=== PATIENT | female | born 1995 | race Caucasian/White ===

== ENCOUNTER 2018-03-05 07:47 | Emergency (ER) | payer BC ==
[2018-03-05] MEDS ORDERED: Ketorolac 30 MG/ML SDV IVPUSH ONE (07:58)
[2018-03-05] MEDS ORDERED: Sodium Chloride 0.9% 2.5 ML Syringe FLUSH PRN (07:58)
[2018-03-05] MEDS ORDERED: Sodium Chloride 0.9% 10 ML Syringe FLUSH PRN (07:58)
[2018-03-05] MEDS ORDERED: Albuterol/Ipratropium 3.0-0.5 MG/3 ML Neb Soln NEB ONE (07:59)
--- NOTE | 2018-03-05 07:59 | EDM.PDOC ---
ED HPI GENERAL MEDICAL PROBLEM - General Chief Complaint: Chest Pain Stated Complaint: CHEST PAINS Time Seen by Provider: 03/05/18 07:47 - History of Present Illness INITIAL COMMENTS - FREE TEXT/NARRATIVE: HISTORY AND PHYSICAL: History of present illness: The patient is a healthy 22-year-old female who presents with complaints of pressure and pain to the mid sternum that started after she woke up this morning. The patient says that she had similar pain when she had bronchitis back in November but it seems to be a little stronger today. She did not use her inhaler or take any medications for the discomfort prior to coming here. The patient tells me she had a normal day yesterday with normal by mouth intake and no strenuous activities and no upper respiratory symptoms or discomfort. When the pain started she did not get sweaty and nauseated or short of breath. Patient has no leg pain or swelling and she does take oral control pills for the last 4 years but does not smoke cigarettes and has no other social history. She has no significant family history for cardiac disease. The patient says that the discomfort does not radiate right or left and is located in the mid area and she doesn't have any food intolerances or GI problems. She currently does not feel nauseated and is not having excessive burping. She says that the discomfort does trigger her to cough but she has not been coughing recently. There is no phlegm production and no fevers or chills sore throat or runny nose. The patient rates her discomfort as a 6-7/10 Review of systems: As per history of present illness and below otherwise all systems reviewed and negative. Past medical history: As per history of present illness and as reviewed below otherwise noncontributory. Surgical history: As per history of present illness and as reviewed below otherwise noncontributory. Social history: No reported history of drug or alcohol abuse. Family history: As per history of present illness and as reviewed below otherwise noncontributory. Physical exam: General: Well-developed well-nourished female whose vital signs were noted by me and who is speaking clearly and easily in the ED without breathlessness and moves easily without discomfort. HEENT: Atraumatic, normocephalic, negative for conjunctival pallor or scleral icterus, mucous membranes moist, throat clear, neck supple, nontender, trachea midline. Lungs: Clear to auscultation, breath sounds equal bilaterally, chest wall with reproducible discomfort on palpation of the costochondral areas bilaterally without defects deformities or crepitus. There is no wheezing or stridor no work of breathing Heart: S1S2, regular, negative for clicks, rubs, or JVD. Abdomen: Soft, nondistended, nontender. Negative for masses or hepatosplenomegaly. NABS Pelvis: Deferred Genitourinary: Deferred. Rectal: Deferred. Extremities: Atraumatic, negative for cords or calf pain. Neurovascular unremarkable. No pedal edema or leg asymmetry Neuro: Awake, alert, oriented. Cranial nerves II through XII unremarkable. Cerebellum unremarkable. Motor and sensory unremarkable throughout. Exam nonfocal. Skin: Turgor is normal not diaphoresis and no overt evidence of rashes or lesions Diagnostics: EKG chest x-ray CBC CMP troponin d-dimer H. pylori Therapeutics: Toradol DuoNeb Please note that when asked about her allergy to ibuprofen she says it is only the trade name Motrin and she can take generic ibuprofens why we'll give her the Toradol. During and after the DuoNeb the patient did have facial flushing and shakiness and felt somewhat anxious with her increased heart rate but this started to resolve very quickly after the treatment ended. I evaluated the patient and this is not any allergic reaction but more a side effect of the DuoNeb. I discussed all testing results with patient and mother at bedside. She states she does feel much improved and she says that she has a scheduled appointment with Dr. Edgar Teran on Thursday. I've advised her on reasons to return to the ED and care plan for home and to keep that follow-up appointment for reevaluation. She is comfortable with this care plan. Impression: Chest wall pain improved, etiology unclear rule out costochondritis Definitive disposition and diagnosis as appropriate pending reevaluation and review of above. 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 ED EXAM, GENERAL - Physical Exam Exam: See Below (See dictation) Course - Vital Signs Last Recorded V/S: Last Vital Signs Temp 36.4 C 03/05/18 07:48 Pulse 77 03/05/18 09:46 Resp 16 03/05/18 09:46 BP 118/63 03/05/18 09:46 Pulse Ox 98 03/05/18 09:46 - Orders/Labs/Meds Orders: Active Orders 24 hr Category Date Time Status Cardiac Monitoring [RC] . DIRECTED Care 03/05/18 07:58 Active EKG 12 Lead [EKG Documentation Completion] [RC] STAT Care 03/05/18 07:53 Active EKG Documentation Completion [RC] STAT Care 03/05/18 07:58 Inactive Oxygen Therapy, ED [RC] ASDIRECTED Care 03/05/18 07:57 Active Pulse Oximetry [RC] ASDIRECTED Care 03/05/18 07:58 Active RT Aerosol Therapy [RC] ASDIRECTED Care 03/05/18 07:59 Active Sodium Chloride 0.9% [Saline Flush] Med 03/05/18 07:58 Active 10 ml FLUSH ASDIRECTED PRN Sodium Chloride 0.9% [Saline Flush] Med 03/05/18 07:58 Active 2.5 ml FLUSH ASDIRECTED PRN Saline Lock Insert [OM.PC] Stat Oth 03/05/18 07:57 Ordered Medication Orders Sodium Chloride (Saline Flush) 10 ml FLUSH ASDIRECTED PRN PRN Reason: Keep Vein Open Sodium Chloride (Saline Flush) 2.5 ml FLUSH ASDIRECTED PRN PRN Reason: Keep Vein Open Labs: Laboratory Tests 03/05/18 03/05/18 03/05/18 Range/Units 08:10 08:10 08:10 WBC 8.08 (4.0-11.0) K/uL RBC 4.89 (4.30-5.90) M/uL Hgb 14.2 (12.0-16.0) g/dL Hct 40.4 (36.0-46.0) % MCV 82.6 (80.0-98.0) fL MCH 29.0 (27.0-32.0) pg MCHC 35.1 (31.0-37.0) g/dL RDW Std Deviation 39.0 (28.0-62.0) fl RDW Coeff of [place] 13 (11.0-15.0) % Plt Count 263 (150-400) K/uL MPV 9.60 (7.40-12.00) fL Neut % (Auto) 51.5 (48.0-80.0) % Lymph % (Auto) 34.0 (16.0-40.0) % [place] % (Auto) 7.8 (0.0-15.0) % Eos % (Auto) 6.3 (0.0-7.0) % Baso % (Auto) 0.4 (0.0-1.5) % Neut # (Auto) 4.2 (1.4-5.7) K/uL Lymph # (Auto) 2.8 H (0.6-2.4) K/uL [place] # (Auto) 0.6 (0.0-0.8) K/uL Eos # (Auto) 0.5 (0.0-0.7) K/uL Baso # (Auto) 0.0 (0.0-0.1) K/uL Nucleated RBC % 0.0 /100WBC Nucleated RBCs # 0 K/uL D-Dimer, Quantitative < 0.19 (0.0-0.52) mg/LFEU Sodium 141 (136-145) mmol/L Potassium 3.9 (3.5-5.1) mmol/L Chloride 107 (98-107) mmol/L Carbon Dioxide 22.3 (21.0-32.0) mmol/L BUN 14 (7.0-18.0) mg/dL Creatinine 0.7 (0.6-1.0) mg/dL Est Cr Clr Drug Dosing 109.78 mL/min Estimated GFR (MDRD) > 60.0 ml/min Glucose 86 (74-106) mg/dL Calcium 9.3 (8.5-10.1) mg/dL Total Bilirubin 0.4 (0.2-1.0) mg/dL AST 26 (15-37) IU/L ALT 22 (14-63) IU/L Alkaline Phosphatase 43 L (46-116) U/L Troponin I < 0.050 (0.000-0.056) ng/mL Total Protein 6.9 (6.4-8.2) g/dL Albumin 3.5 (3.4-5.0) g/dL Globulin 3.4 (2.0-3.5) g/dL Albumin/Globulin Ratio 1.0 L (1.3-2.8) H. pylori IgG Antibody (NEG) 03/05/18 Range/Units 08:10 WBC (4.0-11.0) K/uL RBC (4.30-5.90) M/uL Hgb (12.0-16.0) g/dL Hct (36.0-46.0) % MCV (80.0-98.0) fL MCH (27.0-32.0) pg MCHC (31.0-37.0) g/dL RDW Std Deviation (28.0-62.0) fl RDW Coeff of [place] (11.0-15.0) % Plt Count (150-400) K/uL MPV (7.40-12.00) fL Neut % (Auto) (48.0-80.0) % Lymph % (Auto) (16.0-40.0) % [place] % (Auto) (0.0-15.0) % Eos % (Auto) (0.0-7.0) % Baso % (Auto) (0.0-1.5) % Neut # (Auto) (1.4-5.7) K/uL Lymph # (Auto) (0.6-2.4) K/uL [place] # (Auto) (0.0-0.8) K/uL Eos # (Auto) (0.0-0.7) K/uL Baso # (Auto) (0.0-0.1) K/uL Nucleated RBC % /100WBC Nucleated RBCs # K/uL D-Dimer, Quantitative (0.0-0.52) mg/LFEU Sodium (136-145) mmol/L Potassium (3.5-5.1) mmol/L Chloride (98-107) mmol/L Carbon Dioxide (21.0-32.0) mmol/L BUN (7.0-18.0) mg/dL Creatinine (0.6-1.0) mg/dL Est Cr Clr Drug Dosing mL/min Estimated GFR (MDRD) ml/min Glucose (74-106) mg/dL Calcium (8.5-10.1) mg/dL Total Bilirubin (0.2-1.0) mg/dL AST (15-37) IU/L ALT (14-63) IU/L Alkaline Phosphatase (46-116) U/L Troponin I (0.000-0.056) ng/mL Total Protein (6.4-8.2) g/dL Albumin (3.4-5.0) g/dL Globulin (2.0-3.5) g/dL Albumin/Globulin Ratio (1.3-2.8) H. pylori IgG Antibody NEGATIVE (NEG) Meds: Medications Generic Name Dose Route Start Last Admin Trade Name Ishaan PRN Reason Stop Dose Admin Sodium Chloride 10 ml 03/05/18 07:58 Saline Flush FLUSH ASDIRECTED PRN Keep Vein Open Sodium Chloride 2.5 ml 03/05/18 07:58 Saline Flush FLUSH ASDIRECTED PRN Keep Vein Open Discontinued Medications Generic Name Dose Route Start Last Admin Trade Name Ishaan PRN Reason Stop Dose Admin Albuterol/Ipratropium 3 ml 03/05/18 07:59 03/05/18 08:31 Duoneb 3.0-0.5 Mg/3 Ml NEB 03/05/18 08:00 3 ml ONETIME ONE Administration Diphenhydramine HCl Confirm 03/05/18 08:44 Benadryl Administered 03/05/18 08:45 Dose 50 mg .ROUTE .STK-MED ONE Ketorolac Tromethamine 30 mg 03/05/18 07:58 03/05/18 08:16 Toradol IVPUSH 03/05/18 07:59 30 mg ONETIME ONE Administration Departure - Departure Time of Disposition: 10:11 Disposition: Home, Self-Care 01 Condition: Good Clinical Impression: Chest wall pain - Discharge Information Forms: ED Department Discharge Additional Instructions: The following information is given to patients seen in the emergency department who are being discharged to home. This information is to outline your options for follow-up care. We provide all patients seen in our emergency department with a follow-up referral. The need for follow-up, as well as the timing and circumstances, are variable depending upon the specifics of your emergency department visit. If you don't have a primary care physician on staff, we will provide you with a referral. We always advise you to contact your personal physician following an emergency department visit to inform them of the circumstance of the visit and for follow-up with them and/or the need for any referrals to a consulting specialist. The emergency department will also refer you to a specialist when appropriate. This referral assures that you have the opportunity for followup care with a specialist. All of these measure are taken in an effort to provide you with optimal care, which includes your followup. Under all circumstances we always encourage you to contact your private physician who remains a resource for coordinating your care. When calling for followup care, please make the office aware that this follow-up is from your recent emergency room visit. If for any reason you are refused follow-up, please contact the [facility] emergency department at and ask to speak to the emergency department charge nurse. [address] [place] [address] [facility] Primary care- Internal Medicine and Family [address] [id number] Please use your inhaler as needed and please call and keep your appointment with Dr. Edgar Ventura at [facility] that you have neck suite for reevaluation and further care. Rest push fluids and return to ER as needed and as discussed. Try to do stretching exercises as we discussed and also use [id number] anti-inflammatories for discomfort and inflammation. - My Orders Last 24 Hours: My Active Orders 03/05/18 07:53 EKG 12 Lead [EKG Documentation Completion] [RC] STAT 04/27/18 07:57 Oxygen Therapy, ED [RC] ASDIRECTED Saline Lock Insert [OM.PC] Stat 03/05/18 07:58 Cardiac Monitoring [RC] . DIRECTED EKG Documentation Completion [RC] STAT Pulse Oximetry [RC] ASDIRECTED Sodium Chloride 0.9% [Saline Flush] 10 ml FLUSH ASDIRECTED PRN Sodium Chloride 0.9% [Saline Flush] 2.5 ml FLUSH ASDIRECTED PRN 03/05/18 07:59 RT Aerosol Therapy [RC] ASDIRECTED - Assessment/Plan Last 24 Hours: My Active Orders 03/05/18 07:53 EKG 12 Lead [EKG Documentation Completion] [RC] STAT 03/05/18 07:57 Oxygen Therapy, ED [RC] ASDIRECTED Saline Lock Insert [OM.PC] Stat 03/05/18 07:58 Cardiac Monitoring [RC] . DIRECTED EKG Documentation Completion [RC] STAT Pulse Oximetry [RC] ASDIRECTED Sodium Chloride 0.9% [Saline Flush] 10 ml FLUSH ASDIRECTED PRN Sodium Chloride 0.9% [Saline Flush] 2.5 ml FLUSH ASDIRECTED PRN 03/05/18 07:59 RT Aerosol Therapy [RC] ASDIRECTED
[2018-03-05] MEDS ORDERED: diphenhydrAMINE 50 MG/ML SDV ONE (08:44)
[2018-03-05 08:47] LABS: CHLORIDE,CL 107 mmol/L (98-107); SODIUM,NA 141 mmol/L (136-145)
--- NOTE | 2018-03-05 09:20 | CR ---
EXAMINATION: Portable chest radiograph. HISTORY: Shortness of breath. FINDINGS: The trachea is midline. The cardiomediastinal silhouette is within normal limits. No pulmonary infilt rates, effusions or pneumothorax. Osseous structures appear unremarkable. IMPRESSION: No acute cardiopulmonary process.
[2018-03-05 09:47] VITALS: BP 118/63
== END 2018-03-05 10:29 | disposition home or self-care (01) ==
LOC: MW.ED 07:47
DX: R07.89 Other chest pain (principal); Z88.6 Allergy status to analgesic agent
CPT/HCPCS: 36415; 71045; 80053; 84484; 85025; 85379; 86677; 93005; 94640; 96374; 99285; J1885

== ENCOUNTER 2021-07-29 16:34 | Inpatient (IN) | payer BC ==
[2021-07-29 17:28] LABS: BLOOD UREA NITROGEN,BUN 12 mg/dL (7.0-18.0); CHLORIDE,CL 102 mmol/L (98-107); GLUCOSE RANDOM 77 mg/dL (74-106); POTASSIUM,K 3.9 mmol/L (3.5-5.1); SODIUM,NA 137 mmol/L (136-145)
[2021-07-29] MEDS ORDERED: Sodium Chloride 0.9% 10 ML Syringe FLUSH PRN (17:48)
[2021-07-29] MEDS ORDERED: Lidocaine 1% 50 ML MDV INJECT PRN (17:48)
[2021-07-29] MEDS ORDERED: Water For Irrigation,Sterile 1,000 ML Container IRR PRN (17:48)
[2021-07-29] MEDS ORDERED: Tranexamic Acid 1,000 MG in Sodium Chloride 0.9% 100 ML IV PRN (17:48)
[2021-07-29] MEDS ORDERED: Butorphanol 1 MG/ML SDV IVPUSH PRN (17:48)
[2021-07-29] MEDS ORDERED: Methylergonovine 0.2 MG/1 ML Amp IM PRN (17:48)
[2021-07-29] MEDS ORDERED: Nalbuphine 10 MG/1 ML Vial IVPUSH PRN (17:48)
[2021-07-29] MEDS ORDERED: Misoprostol 200 MCG Tab PO PRN (17:48)
[2021-07-29] MEDS ORDERED: Sodium Chloride 0.9% 2.5 ML Syringe FLUSH PRN (17:48)
[2021-07-29] MEDS ORDERED: Carboprost Tromethamine 250 MCG/1 ML Amp IM PRN (17:48)
[2021-07-29] MEDS ORDERED: Sodium Chloride 0.9% 10 ML SDV IV PRN (17:48)
[2021-07-29] MEDS ORDERED: Oxytocin/0.9 % Sodium Chloride 30 UNIT/500 ML BAG IV SCH (18:00)
[2021-07-30] MEDS ORDERED: Misoprostol 25 MCG (1/4 of 100 MCG) Tab VAG PRN (06:00)
[2021-07-30] MEDS ORDERED: Oxytocin/0.9 % Sodium Chloride 30 UNIT/500 ML BAG IV SCH (06:00)
[2021-07-30] MEDS ORDERED: Terbutaline 1 MG/ML SDV SUBCUT PRN (06:00)
[2021-07-30] MEDS ORDERED: Misoprostol 25 MCG (1/4 of 100 MCG) Tab ONE (06:23)
[2021-07-30] MEDS ORDERED: Bupivacaine 0.25% 10 ML SDV ONE (10:08)
[2021-07-30] MEDS ORDERED: Ropivacaine HCl/PF 200 ML ONE (10:08)
[2021-07-30] MEDS: Lactated Ringers 1,000 ML IV SCH ×2 (10:22→11:09)
--- NOTE | 2021-07-30 11:03 | PCM.PREANE ---
Preanesthetic Assessment - Anesthesia/Transfusion/Family Hx Anesthesia History: Prior Anesthesia Without Reaction Transfusion History: No Prior Transfusion(s) - Review of Systems General: No Symptoms Pulmonary: No Symptoms Cardiovascular: No Symptoms, Other (gestational HTN) Gastrointestinal: No Symptoms Neurological: No Symptoms Other: Reports: None - Physical Assessment Height: 5 ft 4 in Weight: 73.028 kg ASA Class: 2 Mental Status: Alert & Oriented x3 Airway Class: Mallampati = 2 Dentition: Reports: Normal Dentition Thyro-Mental Finger Breadths: 3 Mouth Opening Finger Breadths: 3 ROM/Head Extension: Full Lungs: Clear to Auscultation, Normal Respiratory Effort Cardiovascular: Regular Rate, Regular Rhythm - Lab Values: Laboratory Last Values WBC 11.41 K/uL (4.0-11.0) H 07/29/21 16:42 RBC 4.90 M/uL (4.30-5.90) 07/29/21 16:42 Hgb 15.0 g/dL (12.0-16.0) 07/29/21 16:42 Hct 41.4 % (36.0-46.0) 07/29/21 16:42 MCV 84.5 fL (80.0-98.0) 07/29/21 16:42 MCH 30.6 pg (27.0-32.0) 07/29/21 16:42 MCHC 36.2 g/dL (31.0-37.0) 07/29/21 16:42 RDW Std Deviation 39.7 fl (28.0-62.0) 07/29/21 16:42 RDW Coeff of [place] 13 % (11.0-15.0) 07/29/21 16:42 Plt Count 232 K/uL (150-400) 07/29/21 16:42 MPV 11.10 fL (7.40-12.00) 07/29/21 16:42 Nucleated RBC % 0.0 /100WBC 07/29/21 16:42 Nucleated RBCs # 0 K/uL 07/29/21 16:42 Sodium 137 mmol/L (136-145) 07/29/21 16:42 Potassium 3.9 mmol/L (3.5-5.1) 07/29/21 16:42 Chloride 102 mmol/L (98-107) 07/29/21 16:42 Carbon Dioxide 21.0 mmol/L (21.0-32.0) 07/29/21 16:42 BUN 12 mg/dL (7.0-18.0) 07/29/21 16:42 Creatinine 0.7 mg/dL (0.6-1.0) 07/29/21 16:42 Est Cr Clr Drug Dosing 106.09 mL/min 07/29/21 16:42 Estimated GFR (MDRD) > 60.0 ml/min 07/29/21 16:42 Glucose 77 mg/dL (74-106) 07/29/21 16:42 Uric Acid 5.6 mg/dL (2.6-7.2) 07/29/21 16:42 Calcium 9.6 mg/dL (8.5-10.1) 07/29/21 16:42 Total Bilirubin 0.3 mg/dL (0.2-1.0) 07/29/21 16:42 AST 26 IU/L (15-37) 07/29/21 16:42 ALT 23 IU/L (14-63) 07/29/21 16:42 Alkaline Phosphatase 175 U/L (46-116) H 07/29/21 16:42 Total Protein 6.7 g/dL (6.4-8.2) 07/29/21 16:42 Albumin 2.8 g/dL (3.4-5.0) L 07/29/21 16:42 Globulin 3.9 g/dL (2.6-4.0) 07/29/21 16:42 Albumin/Globulin Ratio 0.7 (0.9-1.6) L 07/29/21 16:42 Ur Random Creatinine 217.6 mg/dL 07/29/21 17:10 U Random Total Protein 33.8 mg/dL (<11.9) H 07/29/21 17:10 Protein/Creatinin Ratio 0.2 07/29/21 17:10 SARS-CoV-2 RNA (MARIA) NEGATIVE (NEGATIVE) 07/29/21 18:00 Blood Type B POSITIVE 07/29/21 16:42 Antibody Screen NEGATIVE 07/29/21 16:42 - Allergies Allergies/Adverse Reactions: Allergies Allergy/AdvReac Type Severity Reaction Status Date / Time adhesive tape Allergy Mild Rash Verified 07/29/21 16:54 ibuprofen [From Motrin] Allergy Mild Redness Verified 07/29/21 16:54 - Acknowledgements Anesthesia Type Planned: Epidural Pt an Appropriate Candidate for the Planned Anesthesia: Yes Alternatives and Risks of Anesthesia Discussed w Pt/Guardian: Yes Pt/Guardian Understands and Agrees with Anesthesia Plan: Yes PreAnesthesia Questionnaire - Past Health History Medical/Surgical History: Denies Medical/Surgical History HEENT History: Reports: Impaired Vision Cardiovascular History: Reports: Other (See Below) Other Cardiovascular History: gestational hypertension Genitourinary History: Reports: Pyelonephritis, UTI, Recurrent 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: Musculoskeletal History: Reports: None Psychiatric History: Reports: None Dermatologic History: Reports: None - Infectious Disease History Infectious Disease History: Reports: Chicken Pox - Past Surgical History HEENT Surgical History: Reports: Adenoidectomy, Oral Surgery, Tonsillectomy, Other (See Below) Other HEENT Surgeries/Procedures: wisdom teeth extraction Cardiovascular Surgical History: Reports: None Female Surgical History: Reports: None - SUBSTANCE USE Tobacco Use Status *Q: Never Tobacco User Recreational Drug Use History: No - HOME MEDS Home Medications: Home Meds Lansoprazole [Prevacid] 30 mg PO DAILY 07/29/21 [History] Pnv No.95/Ferrous Fum/Folic AC [ Vitamin Tablet] 1 tab PO DAILY 07/29/21 [History] - CURRENT (IN HOUSE) MEDS Current Meds: Current Medications Butorphanol Tartrate (Butorphanol 1 Mg/Ml Sdv) 1 mg IVPUSH Q1H PRN PRN Reason: Pain (severe 7-10) Last Admin: 07/30/21 08:23 Dose: 1 mg Documented by: Carboprost Tromethamine (Carboprost Tromethamine 250 Mcg/1 Ml Amp) 250 mcg IM ASDIRECTED PRN PRN Reason: Post Hemorrhage Lactated Ringer's (Ringers, Lactated) 1,000 mls @ 150 mls/hr IV ASDIRECTED MASON Last Admin: 07/30/21 10:22 Dose: 999 mls/hr Documented by: Oxytocin/Sodium Chloride (Oxytocin 30 Unit/500 Ml-Ns) 30 unit in 500 mls @ 999 mls/hr IV TITRATE MASON Tranexamic Acid 1,000 mg/ (Sodium Chloride) 110 mls @ 660 mls/hr IV ONETIME PRN PRN Reason: Bleeding Oxytocin/Sodium Chloride (Oxytocin 30 Unit/500 Ml-Ns) 30 unit in 500 mls @ 2 mls/hr IV TITRATE MASON; Protocol Lidocaine HCl (Lidocaine 1% 50 Ml Mdv) 50 ml INJECT ONETIME PRN PRN Reason: Laceration repair Methylergonovine Maleate (Methylergonovine 0.2 Mg/1 Ml Amp) 0.2 mg IM ASDIRECTED PRN PRN Reason: Post Hemorrhage Misoprostol (Misoprostol 200 Mcg Tab) 200 mcg PO ONETIME PRN PRN Reason: Post Hemorrhage Misoprostol (Misoprostol 25 Mcg (1/4 Of 100 Mcg) Tab) 25 mcg VAG Q6H PRN PRN Reason: Cervical Ripening Last Admin: 07/30/21 06:27 Dose: 25 mcg Documented by: Nalbuphine HCl (Nalbuphine 10 Mg/1 Ml Vial) 10 mg IVPUSH Q1H PRN PRN Reason: Pain (severe 7-10) Sodium Chloride (Sodium Chloride 0.9% 10 Ml Syringe) 10 ml FLUSH ASDIRECTED PRN PRN Reason: Keep Vein Open Sodium Chloride (Sodium Chloride 0.9% 2.5 Ml Syringe) 2.5 ml FLUSH ASDIRECTED PRN PRN Reason: Keep Vein Open Sodium Chloride (Sodium Chloride 0.9% 10 Ml Sdv) 10 ml IV ASDIRECTED PRN PRN Reason: IV Use Sterile Water (Water For Irrigation,Sterile 1,000 Ml Container) 1,000 ml IRR ASDIRECTED PRN PRN Reason: delivery Terbutaline Sulfate (Terbutaline 1 Mg/Ml Sdv) 0.25 mg SUBCUT ASDIRECTED PRN PRN Reason: Tacysystole Discontinued Medications Bupivacaine HCl (Bupivacaine 0.25% 10 Ml Sdv) Confirm Administered Dose 20 ml .ROUTE .STK-MED ONE Stop: 07/30/21 10:09 Ropivacaine (Naropin 0.2%) Confirm Administered Dose 200 mls @ as directed .ROUTE .STK-MED ONE Stop: 07/30/21 10:09 Misoprostol (Misoprostol 25 Mcg (1/4 Of 100 Mcg) Tab) Confirm Administered Dose 25 mcg .ROUTE .STK-MED ONE Stop: 07/30/21 06:24 Last Admin: 07/30/21 08:05 Dose: Not Given Documented by:
--- NOTE | 2021-07-30 11:22 | PCM.SN.2 ---
Time Documentation - Pre-Procedure Checklist Attending Provider Aware: Yes Chart Reviewed: Yes Consent Signed: Yes Labs Reviewed: Yes VS/FHR Reviewed: Yes Patient Identification Confirmation Method: Reports: ID Band Visual, Verbal Patient Pt an Appropriate Candidate for the Planned Anesthesia: Yes Alternatives and Risks of Anesthesia Discussed w Pt/Guardian: Yes - Procedure Procedure Start Date: 07/30/21 Procedure Start Time: 10:[address]: Reports: Blood Pressure, Heart Rate, SPO2 Functional IV: Yes Safety Measures: Reports: Patient Identified, Procedure Verified, Site Verified, Procedure Time Out Patient Position: Reports: Sitting Prep: Reports: Betadine x3, Sterile Drape Local Anesthetic: Reports: Intradermal Wheal w Lidocaine 1% Regional Placement Level: Reports: L4-5 Needle: Reports: 17 g Touhy Approach: Reports: Midline Technique: Reports: MIKE Plastic Syringe (MIKE to saline) Parasthesia: Reports: None Fluid Obtained: Reports: None Test Dose Time: 10:27 Test Dose Medication: Reports: Lidocaine 1.5% w Epinephrine 1:200,000 Test Dose Response: Reports: Negative Loading Dose Time: 10:30 Loading Dose Medication: Bupivacaine 0.25% 10 ml total in 2 separate doses Loading Dose Patient Position: semi-fowlers with SURINDER Continuous Infusion Start Time: 10:42 Continuous Infusion Medication: Ropivacaine 0.2% Continuous Infusion Rate: 14 Continuous Infusion PCS Bolus Option: 4ml q 15 min Patient Position Post Placement: Reports: Semi-fowlers/SURINDER Post-procedure Pain Level: 2 Level Achieved: T-10 VS and FHR Monitored in Unit Post Placement: Yes Procedure End Date: 07/30/21 Procedure End Time: 11:13 Procedure Comment: Pt. tolerated procedure well
--- NOTE | 2021-07-30 11:23 | PCM.POSTAN ---
POST ANESTHESIA ASSESSMENT - MENTAL STATUS Mental Status: Alert, Oriented - RESPIRATORY Respiratory Status: Respiratory Rate WNL, Airway Patent, O2 Saturation Stable - CARDIOVASCULAR CV Status: Pulse Rate WNL, Blood Pressure Stable - GASTROINTESTINAL GI Status: No Symptoms - POST OP HYDRATION Hydration Status: Adequate & Stable
[2021-07-30] MEDS ORDERED: ePHEDrine 50 MG/ML SDV IVPUSH PRN (11:34)
[2021-07-30] MEDS ORDERED: Ropivacaine 0.2% 2MG/ML 200 ML Bag EPIDUR SCH (12:00)
--- NOTE | 2021-07-30 12:53 | PCM.DEL ---
L & D Note - General Info Date of Service: 07/30/21 Mother's Due Date: 08/06/21 - Delivery Note Labor: Induced by Oxytocin Cervical Ripening Method: Misoprostil Delivery Outcome: Livebirth Presentation: Left Occiput Anterior (CHANDRA) Nuchal Cord: Present Prep: Other Anesthesia Type: Epidural Amniotic Fluid Description: Clear Episiotomy Type: None Laceration: Vaginal Suture type: Vicryl Suture size: 3-0 Placenta: Intact, Spontaneous Cord: 3 Vessels Estimated Blood Loss: 200 Resuscitation Needed: No : Suctioned Score 1 min: 8 Score 5 min: 9 Score 10 min: 0 - General Info Date of Service: 07/30/21 - Patient Data Weight - Most Recent: 73.028 kg I&O - Last 24 Hours: Intake & Output 07/29/21 07/30/21 07/30/21 22:59 06:59 14:59 Intake Total 2900 Balance 2900 Lab Results Last 24 Hours: Laboratory Results - last 24 hr 07/29/21 07/29/21 07/29/21 Range/Units 16:42 16:42 16:42 WBC 11.41 H (4.0-11.0) K/uL RBC 4.90 (4.30-5.90) M/uL Hgb 15.0 (12.0-16.0) g/dL Hct 41.4 (36.0-46.0) % MCV 84.5 (80.0-98.0) fL MCH 30.6 (27.0-32.0) pg MCHC 36.2 (31.0-37.0) g/dL RDW Std Deviation 39.7 (28.0-62.0) fl RDW Coeff of [place] 13 (11.0-15.0) % Plt Count 232 (150-400) K/uL MPV 11.10 (7.40-12.00) fL Nucleated RBC % 0.0 /100WBC Nucleated RBCs # 0 K/uL Sodium 137 (136-145) mmol/L Potassium 3.9 (3.5-5.1) mmol/L Chloride 102 (98-107) mmol/L Carbon Dioxide 21.0 (21.0-32.0) mmol/L BUN 12 (7.0-18.0) mg/dL Creatinine 0.7 (0.6-1.0) mg/dL Est Cr Clr Drug Dosing 106.09 mL/min Estimated GFR (MDRD) > 60.0 ml/min Glucose 77 (74-106) mg/dL Uric Acid 5.6 (2.6-7.2) mg/dL Calcium 9.6 (8.5-10.1) mg/dL Total Bilirubin 0.3 (0.2-1.0) mg/dL AST 26 (15-37) IU/L ALT 23 (14-63) IU/L Alkaline Phosphatase 175 H (46-116) U/L Total Protein 6.7 (6.4-8.2) g/dL Albumin 2.8 L (3.4-5.0) g/dL Globulin 3.9 (2.6-4.0) g/dL Albumin/Globulin Ratio 0.7 L (0.9-1.6) Ur Random Creatinine mg/dL U Random Total Protein (<11.9) mg/dL Protein/Creatinin Ratio SARS-CoV-2 RNA (MARIA) (NEGATIVE) Blood Type B POSITIVE Antibody Screen NEGATIVE 07/29/21 07/29/21 Range/Units 17:10 18:00 WBC (4.0-11.0) K/uL RBC (4.30-5.90) M/uL Hgb (12.0-16.0) g/dL Hct (36.0-46.0) % MCV (80.0-98.0) fL MCH (27.0-32.0) pg MCHC (31.0-37.0) g/dL RDW Std Deviation (28.0-62.0) fl RDW Coeff of [place] (11.0-15.0) % Plt Count (150-400) K/uL MPV (7.40-12.00) fL Nucleated RBC % /100WBC Nucleated RBCs # K/uL Sodium (136-145) mmol/L Potassium (3.5-5.1) mmol/L Chloride (98-107) mmol/L Carbon Dioxide (21.0-32.0) mmol/L BUN (7.0-18.0) mg/dL Creatinine (0.6-1.0) mg/dL Est Cr Clr Drug Dosing mL/min Estimated GFR (MDRD) ml/min Glucose (74-106) mg/dL Uric Acid (2.6-7.2) mg/dL Calcium (8.5-10.1) mg/dL Total Bilirubin (0.2-1.0) mg/dL AST (15-37) IU/L ALT (14-63) IU/L Alkaline Phosphatase (46-116) U/L Total Protein (6.4-8.2) g/dL Albumin (3.4-5.0) g/dL Globulin (2.6-4.0) g/dL Albumin/Globulin Ratio (0.9-1.6) Ur Random Creatinine 217.6 mg/dL U Random Total Protein 33.8 H (<11.9) mg/dL Protein/Creatinin Ratio 0.2 SARS-CoV-2 RNA (MARIA) NEGATIVE (NEGATIVE) Blood Type Antibody Screen Med Orders - Current: Current Medications Butorphanol Tartrate (Butorphanol 1 Mg/Ml Sdv) 1 mg IVPUSH Q1H PRN PRN Reason: Pain (severe 7-10) Last Admin: 07/30/21 08:23 Dose: 1 mg Documented by: Carboprost Tromethamine (Carboprost Tromethamine 250 Mcg/1 Ml Amp) 250 mcg IM ASDIRECTED PRN PRN Reason: Post Hemorrhage Ephedrine Sulfate (Ephedrine 50 Mg/Ml Sdv) 10 mg IVPUSH Q1M PRN PRN Reason: Hypotension Lactated Ringer's (Ringers, Lactated) 1,000 mls @ 150 mls/hr IV ASDIRECTED PENDING SALE TO [facility] Last Admin: 07/30/21 11:09 Dose: 999 mls/hr Documented by: Oxytocin/Sodium Chloride (Oxytocin 30 Unit/500 Ml-Ns) 30 unit in 500 mls @ 999 mls/hr IV TITRATE PENDING S[facility] TO [facility] Last Admin: 07/30/21 11:57 Dose: 999 mls/hr Documented by: Tranexamic Acid 1,000 mg/ (Sodium Chloride) 110 mls @ 660 mls/hr IV ONETIME PRN PRN Reason: Bleeding Oxytocin/Sodium Chloride (Oxytocin 30 Unit/500 Ml-Ns) 30 unit in 500 mls @ 2 mls/hr IV TITRATE PENDING SALE TO [facility]; Protocol Lidocaine HCl (Lidocaine 1% 50 Ml Mdv) 50 ml INJECT ONETIME PRN PRN Reason: Laceration repair Methylergonovine Maleate (Methylergonovine 0.2 Mg/1 Ml Amp) 0.2 mg IM ASDIRECTED PRN PRN Reason: Post Hemorrhage Miscellaneous Medication (Phenylephrine Hcl In 0.9% Nacl 1 Mg/10 Ml Syringe) 0.1 mg IVPUSH Q1M PRN PRN Reason: Hypotension Misoprostol (Misoprostol 200 Mcg Tab) 200 mcg PO ONETIME PRN PRN Reason: Post Hemorrhage Misoprostol (Misoprostol 25 Mcg (1/4 Of 100 Mcg) Tab) 25 mcg VAG Q6H PRN PRN Reason: Cervical Ripening Last Admin: 07/30/21 06:27 Dose: 25 mcg Documented by: Nalbuphine HCl (Nalbuphine 10 Mg/1 Ml Vial) 10 mg IVPUSH Q1H PRN PRN Reason: Pain (severe 7-10) Ropivacaine (Ropivacaine 0.2% 2mg/Ml 200 Ml Bag) 400 mg EPIDUR ASDIRECTED [place] Sodium Chloride (Sodium Chloride 0.9% 10 Ml Syringe) 10 ml FLUSH ASDIRECTED PRN PRN Reason: Keep Vein Open Sodium Chloride (Sodium Chloride 0.9% 2.5 Ml Syringe) 2.5 ml FLUSH ASDIRECTED PRN PRN Reason: Keep Vein Open Sodium Chloride (Sodium Chloride 0.9% 10 Ml Sdv) 10 ml IV ASDIRECTED PRN PRN Reason: IV Use Sterile Water (Water For Irrigation,Sterile 1,000 Ml Container) 1,000 ml IRR ASDIRECTED PRN PRN Reason: delivery Last Admin: 07/30/21 11:55 Dose: 1,000 ml Documented by: Terbutaline Sulfate (Terbutaline 1 Mg/Ml Sdv) 0.25 mg SUBCUT ASDIRECTED PRN PRN Reason: Tacysystole Discontinued Medications Bupivacaine HCl (Bupivacaine 0.25% 10 Ml Sdv) Confirm Administered Dose 20 ml .ROUTE .[employer] ONE Stop: 07/30/21 10:09 Ropivacaine (Naropin 0.2%) Confirm Administered Dose 200 mls @ as directed .ROUTE .STK-MED ONE Stop: 07/30/21 10:09 Misoprostol (Misoprostol 25 Mcg (1/4 Of 100 Mcg) Tab) Confirm Administered Dose 25 mcg .ROUTE .[employer] ONE Stop: 07/30/21 06:24 Last Admin: 07/30/21 08:05 Dose: Not Given Documented by: - Problem List & Annotations (1) Gestational hypertension SNOMED Code(s): 16494696 Code(s): O13.9 - GESTATIONAL HTN W/O SIGNIFICANT PROTEINURIA, UNSP TRIMESTER Status: Acute Current Visit: Yes (2) bradycardia during labor SNOMED Code(s): 248858354, 534820698, 793276583 Code(s): EBI2803 - Status: Acute Current Visit: Yes - Problem List Review Problem List Initiated/Reviewed/Updated: Yes - My Orders Last 24 Hours: My Active Orders 07/29/21 16:58 Non Stress Test [RC] PER UNIT ROUTINE Up ad Courtney [RC] ASDIRECTED Vaginal Exam [RC] Click to Edit Vital Signs [RC] PER UNIT ROUTINE Resuscitation Status Routine 07/30/21 06:00 Bedrest Bathroom Privileges [RC] ASDIRECTED Communication Order [RC] ASDIRECTED Communication Order [RC] ASDIRECTED Communication Order [RC] ASDIRECTED Notify Provider [RC] PRN Notify Provider [RC] PRN Notify Provider [RC] STAT Oxygen Therapy [RC] ASDIRECTED Vaginal Exam [RC] PRN Vital Signs [RC] PER UNIT ROUTINE Oxytocin/0.9 % Sodium Chloride [Oxytocin 30 Unit/500 ML-NS] 30 unit in 500 ml IV TITRATE Terbutaline [Brethine] 0.25 mg SUBCUT ASDIRECTED PRN miSOPROStoL [Cytotec] 25 mcg VAG Q6H PRN Medication Administration Instruction [OM.PC] Q3H
[2021-07-30] MEDS ORDERED: Tranexamic Acid 1,000 MG in Sodium Chloride 0.9% 100 ML IV PRN (12:54)
[2021-07-30] MEDS ORDERED: Docusate Sodium 100 MG Cap PO PRN (12:54)
[2021-07-30] MEDS ORDERED: Acetaminophen 500 MG Tab PO PRN (12:54)
[2021-07-30] MEDS ORDERED: Bisacodyl 10 MG Supp RECTAL PRN (12:54)
[2021-07-30] MEDS ORDERED: Lanolin 100% Cream 7 GM Tube TOP PRN (12:54)
--- NOTE | 2021-07-30 13:08 | PCM48HPAN ---
Post Anesthesia Note - EVALUATION WITHIN 48HRS OF ANESTHETIC Vital Signs in Normal Range: Yes Patient Participated in Evaluation: Yes Respiratory Function Stable: Yes Airway Patent: Yes Cardiovascular Function Stable: Yes Hydration Status Stable: Yes Pain Control Satisfactory: Yes Nausea and Vomiting Control Satisfactory: Yes Mental Status Recovered: Yes
[2021-07-30] MEDS: Benzocaine/Menthol 20%-0.5% Spray 78 GM Cannister TOP PRN (15:22)
[2021-07-30] MEDS: Witch Hazel Medicated Pads 40/Jar TOP PRN (15:23)
--- NOTE | 2021-07-30 19:49 | OR ---
SURGEON: Yenifer Garcia M.D. DATE OF PROCEDURE: 07/30/2021 PREOPERATIVE DIAGNOSIS: 39 weeks' gestation with hypertension. POSTOPERATIVE DIAGNOSIS: 39 weeks' gestation with hypertension. PROCEDURES: Cytotec, Pitocin induction of labor, term vacuum-assisted vaginal delivery, repair of vaginal laceration. PRIMARY SURGEON: Yenifer Garcia M.D. ANESTHESIA: Epidural. ESTIMATED BLOOD LOSS: Less than 300 mL. FINDINGS: Liveborn male, scores 8 and 9, weight is pending at the time of dictation. COMPLICATIONS: None known. DISPOSITION: Mother and baby remained in recovery in good condition. BRIEF HISTORY: This is a 26-year-old female, G1, P0. She has had mildly elevated blood pressures over the prior 3 weeks with diastolic in the 80s. Her baseline diastolic was in the 60s. She presents at 39 weeks' gestation for induction of labor with a negative preeclamptic laboratory studies and mildly elevated diastolic blood pressures. Category 1 heart tones throughout labor. She received a single dose of Cytotec. She was then started on Pitocin. She did not have spontaneous rupture of membranes. She progressed to complete with membranes at the introitus. DESCRIPTION OF PROCEDURE: With the patient in dorsal lithotomy position, the membranes were ruptured manually and the head was at a +3 station. The patient began to push, and with one push, the deceleration occurred down to the 40s, this lasted for 3 minutes, and I did consent the patient for a vacuum-assisted vaginal delivery. I did drain the bladder. She has a gynecoid pelvis. Estimated weight was previously documented on the chart and was not macrosomic. The head was in the left occiput anterior position, and after discussing risks and benefits, the Mityvac was placed with the mid position 2 cm anterior to the posterior fontanelle in the midsagittal line. Over 2 contractions, the patient pushed and with vacuum assistance, the head was delivered over the perineum with support, with subsequent delivery of the infant's shoulders and body without any difficulty. A single nuchal cord was reduced. There was one pop-off after delivery of the infant and the infant was handed to the mother in the presence of nurse attending delivery. The infant was a live-born male, scores 8 and 9, weight is pending at the time of dictation. Cord blood was collected for cord ABGs and Pitocin was initiated after delivery of the to assist with delivery of the placenta, which was delivered spontaneously. Schultze intact with 3 vessels. Upon inspection of the pelvis and perineum, there were was a lower vaginal laceration. No perineal, rectal, periurethral, or other lacerations. The vaginal laceration was repaired using a running lock suture of 3-0 Vicryl. Final sponge, needle, and instrument count were correct. There were no known complications. Mother and baby remained in LDR in good condition. BR[place]N DAMICO /[id number]
[2021-07-31] MEDS: Acetaminophen 500 MG Tab PO PRN ×2 (02:26→21:03)
--- NOTE | 2021-07-31 07:01 | PCM.PNPP ---
- General Info Date of Service: 07/31/21 Functional Status: Reports: Pain Controlled, Tolerating Diet, Ambulating, Urinating - Review of Systems General: Reports: No Symptoms HEENT: Reports: No Symptoms Pulmonary: Reports: No Symptoms Cardiovascular: Reports: No Symptoms Gastrointestinal: Reports: No Symptoms Genitourinary: Reports: No Symptoms Musculoskeletal: Reports: No Symptoms Skin: Reports: No Symptoms Neurological: Reports: No Symptoms Psychiatric: Reports: No Symptoms - General Info Date of Service: 07/31/21 - Patient Data Vital Signs - Most Recent: Last Vital Signs Temp 36.2 C 07/31/21 05:07 Pulse 73 07/31/21 05:07 Resp 16 07/31/21 05:07 BP 107/53 L 07/31/21 05:07 Pulse Ox 97 07/31/21 05:07 Weight - Most Recent: 73.028 kg I&O - Last 24 Hours: Intake & Output 07/30/21 07/30/21 07/31/21 14:59 22:59 06:59 Intake Total 3400 Output Total 700 575 Balance 3400 -700 -575 Lab Results - Last 24 Hours: Laboratory Results - last 24 hr 07/30/21 07/31/21 Range/Units 11:56 05:30 Hgb 12.2 (12.0-16.0) g/dL Hct 35.4 L (36.0-46.0) % Cord ABG pH 7.203 (7.18-7.38) Cord ABG Base Excess -8 (-10--2) Cord VBG pH 7.274 (7.25-7.45) Cord VBG Base Excess -6 (-10--2) Med Orders - Current: Current Medications Acetaminophen (Acetaminophen 500 Mg Tab) 500 mg PO Q4H PRN PRN Reason: Pain (mild 1-3) Acetaminophen (Acetaminophen 500 Mg Tab) 1,000 mg PO Q4H PRN PRN Reason: Pain (mild 1-3) Last Admin: 07/31/21 02:26 Dose: 1,000 mg Documented by: Benzocaine/Menthol (Benzocaine/Menthol 20%-0.5% [place] 78 Gm Cannister) 78 gm TOP ASDIRECTED PRN PRN Reason: Perineal Comfort Measure Last Admin: 07/30/21 15:22 Dose: 1 canister Documented by: Bisacodyl (Bisacodyl 10 Mg Supp) 10 mg RECTAL ONETIME PRN PRN Reason: Constipation Docusate Sodium (Docusate Sodium 100 Mg Cap) 100 mg PO Q12H PRN PRN Reason: Constipation Emollient Ointment (Lanolin 100% Cream 7 Gm Tube) 0 gm TOP ASDIRECTED PRN PRN Reason: Sore Nipples Last Admin: 07/30/21 15:22 Dose: 1 tube Documented by: Tranexamic Acid 1,000 mg/ (Sodium Chloride) 110 mls @ 660 mls/hr IV ONETIME PRN PRN Reason: Bleeding Witch Rachael (Witch Rachael Medicated Pads 40/Jar) 1 pad TOP ASDIRECTED PRN PRN Reason: comfort care Last Admin: 07/30/21 15:23 Dose: 1 tub Documented by: Discontinued Medications Bupivacaine HCl (Bupivacaine 0.25% 10 Ml Sdv) Confirm Administered Dose 20 ml .ROUTE .STK-MED ONE Stop: 07/30/21 10:09 Last Admin: 07/31/21 00:16 Dose: Not Given Documented by: Butorphanol Tartrate (Butorphanol 1 Mg/Ml Sdv) 1 mg IVPUSH Q1H PRN PRN Reason: Pain (severe 7-10) Last Admin: 07/30/21 08:23 Dose: 1 mg Documented by: Carboprost Tromethamine (Carboprost Tromethamine 250 Mcg/1 Ml Amp) 250 mcg IM ASDIRECTED PRN PRN Reason: Post Hemorrhage Ephedrine Sulfate (Ephedrine 50 Mg/Ml Sdv) 10 mg IVPUSH Q1M PRN PRN Reason: Hypotension Lactated Ringer's (Ringers, Lactated) 1,000 mls @ 150 mls/hr IV ASDIRECTED [facility] Last Admin: 07/30/21 11:09 Dose: 999 mls/hr Documented by: Oxytocin/Sodium Chloride (Oxytocin 30 Unit/500 Ml-Ns) 30 unit in 500 mls @ 999 mls/hr IV TITRATE [facility] Last Admin: 07/30/21 11:57 Dose: 999 mls/hr Documented by: Tranexamic Acid 1,000 mg/ (Sodium Chloride) 110 mls @ 660 mls/hr IV ONETIME PRN PRN Reason: Bleeding Oxytocin/Sodium Chloride (Oxytocin 30 Unit/500 Ml-Ns) 30 unit in 500 mls @ 2 mls/hr IV TITRATE [place]; Protocol Ropivacaine (Naropin 0.2%) Confirm Administered Dose 200 mls @ as directed .ROUTE .[employer] ONE Stop: 07/30/21 10:09 Last Admin: 07/31/21 00:17 Dose: Not Given Documented by: Lidocaine HCl (Lidocaine 1% 50 Ml Mdv) 50 ml INJECT ONETIME PRN PRN Reason: Laceration repair Methylergonovine Maleate (Methylergonovine 0.2 Mg/1 Ml Amp) 0.2 mg IM ASDIRECTED PRN PRN Reason: Post Hemorrhage Miscellaneous Medication (Phenylephrine Hcl In 0.9% Nacl 1 Mg/10 Ml Syringe) 0.1 mg IVPUSH Q1M PRN PRN Reason: Hypotension Misoprostol (Misoprostol 200 Mcg Tab) 200 mcg PO ONETIME PRN PRN Reason: Post Hemorrhage Misoprostol (Misoprostol 25 Mcg (1/4 Of 100 Mcg) Tab) 25 mcg VAG Q6H PRN PRN Reason: Cervical Ripening Last Admin: 07/30/21 06:27 Dose: 25 mcg Documented by: Misoprostol (Misoprostol 25 Mcg (1/4 Of 100 Mcg) Tab) Confirm Administered Dose 25 mcg .ROUTE .[employer] ONE Stop: 07/30/21 06:24 Last Admin: 07/30/21 08:05 Dose: Not Given Documented by: Nalbuphine HCl (Nalbuphine 10 Mg/1 Ml Vial) 10 mg IVPUSH Q1H PRN PRN Reason: Pain (severe 7-10) Ropivacaine (Ropivacaine 0.2% 2mg/Ml 200 Ml Bag) 400 mg EPIDUR ASDIRECTED [place] Sodium Chloride (Sodium Chloride 0.9% 10 Ml Syringe) 10 ml FLUSH ASDIRECTED PRN PRN Reason: Keep Vein Open Sodium Chloride (Sodium Chloride 0.9% 2.5 Ml Syringe) 2.5 ml FLUSH ASDIRECTED PRN PRN Reason: Keep Vein Open Sodium Chloride (Sodium Chloride 0.9% 10 Ml Sdv) 10 ml IV ASDIRECTED PRN PRN Reason: IV Use Sterile Water (Water For Irrigation,Sterile 1,000 Ml Container) 1,000 ml IRR ASDIRECTED PRN PRN Reason: delivery Last Admin: 07/30/21 11:55 Dose: 1,000 ml Documented by: Terbutaline Sulfate (Terbutaline 1 Mg/Ml Sdv) 0.25 mg SUBCUT ASDIRECTED PRN PRN Reason: Tacysystole - Infant Interaction Disposition, : in Room with Family Infant Interaction: Holding Infant Infant Feeding: Breastfed ; Nursed Well Support Person: Significant Other - Recovery Exam Fundal Tone: Firm Fundal Level: 1 Fingerbreadths Below Umbilicus Fundal Placement: Right Lochia Amount: Scant Lochia Color: Rubra/Red Perineum Description: Intact, Minimal Bruising/Swelling Episiotomy/Laceration: None Bladder Status: Nonpalpable Urinary Elimination: Straight Catheterization (has not voided twice) - Exam General: Alert, Oriented Neck: Supple Lungs: Normal Respiratory Effort GI/Abdominal Exam: Soft, Non-Tender, No Organomegaly, No Distention, Pelvis Stable Extremities: Normal Inspection, Non-Tender, No Pedal Edema Skin: Warm, Dry, Intact Neurological: No New Focal Deficit Psy/Mental Status: Alert, Normal Affect, Normal Mood - Problem List & Annotations (1) Gestational hypertension SNOMED Code(s): 26962292 Code(s): O13.9 - GESTATIONAL HTN W/O SIGNIFICANT PROTEINURIA, UNSP TRIMESTER Status: Acute Current Visit: Yes (2) bradycardia during labor SNOMED Code(s): 554583630, 561687067, 953778776 Code(s): OGJ6792 - Status: Acute Current Visit: Yes - Problem List Review Problem List Initiated/Reviewed/Updated: Yes - My Orders Last 24 Hours: My Active Orders 07/30/21 12:54 Patient Status [ADT] Routine May Shower [RC] ASDIRECTED Up ad Courtney [RC] ASDIRECTED Vital Signs [RC] PER UNIT ROUTINE Acetaminophen [Tylenol Extra Strength] 1,000 mg PO Q4H PRN Acetaminophen [Tylenol Extra Strength] 500 mg PO Q4H PRN Benzocaine/Menthol [Dermoplast Pain Relief 20%-0.5% Clarks] 78 gm TOP ASDIRECTED PRN Docusate Sodium [Colace] 100 mg PO Q12H PRN Lanolin [Lansinoh HPA] See Dose Instructions TOP ASDIRECTED PRN Tranexamic Acid [Cyklokapron] 1,000 mg Sodium Chloride 0.9% [Normal Saline] 100 ml IV ONETIME bisacodyL [Dulcolax] 10 mg RECTAL ONETIME PRN witch Rachael [Tucks] 1 pad TOP ASDIRECTED PRN Assess Lochia [WOMSER] Per Unit Routine Assess Uterine Involution [WOMSER] Per Unit Routine Peripheral IV Discontinue [OM.PC] Routine Resuscitation Status Routine 07/30/21 12:55 Perineal Care [OM.PC] Per Unit Routine 07/30/21 Dinner Regular Diet [DIET] 07/31/21 06:43 Ready for Discharge [RC] PER UNIT ROUTINE - Assessment Assessment:: PPD#1 after vacuum assisted vaginal delivery for bradycardia, induction for gestational hypertension. BP has been normal since delivery. well minimal lochia. Would like to go home today if ok with peds. - Plan Plan:: Dismiss to home, discharge precautions reviewed.
[2021-08-01] MEDS: Witch Hazel Medicated Pads 40/Jar TOP PRN (08:32)
[2021-08-01] MEDS: Benzocaine/Menthol 20%-0.5% Spray 78 GM Cannister TOP PRN (08:32)
--- NOTE | 2021-08-01 08:50 | PCM.PNPP ---
- General Info Date of Service: 08/01/21 Functional Status: Reports: Pain Controlled, Tolerating Diet, Ambulating, Urinating - Review of Systems General: Reports: No Symptoms HEENT: Reports: No Symptoms Pulmonary: Reports: No Symptoms Cardiovascular: Reports: No Symptoms Gastrointestinal: Reports: No Symptoms Genitourinary: Reports: No Symptoms Musculoskeletal: Reports: No Symptoms Skin: Reports: No Symptoms Neurological: Reports: No Symptoms Psychiatric: Reports: No Symptoms - General Info Date of Service: 08/01/21 - Patient Data Vital Signs - Most Recent: Last Vital Signs Temp 36.4 C 08/01/21 08:00 Pulse 76 08/01/21 08:00 Resp 16 08/01/21 08:00 BP 126/74 08/01/21 08:00 Pulse Ox 97 08/01/21 08:00 Weight - Most Recent: 73.028 kg Med Orders - Current: Current Medications Acetaminophen (Acetaminophen 500 Mg Tab) 500 mg PO Q4H PRN PRN Reason: Pain (mild 1-3) Acetaminophen (Acetaminophen 500 Mg Tab) 1,000 mg PO Q4H PRN PRN Reason: Pain (mild 1-3) Last Admin: 07/31/21 21:03 Dose: 1,000 mg Documented by: Benzocaine/Menthol (Benzocaine/Menthol 20%-0.5% [place] 78 Gm Cannister) 78 gm TOP ASDIRECTED PRN PRN Reason: Perineal Comfort Measure Last Admin: 08/01/21 08:32 Dose: 1 canister Documented by: Bisacodyl (Bisacodyl 10 Mg Supp) 10 mg RECTAL ONETIME PRN PRN Reason: Constipation Docusate Sodium (Docusate Sodium 100 Mg Cap) 100 mg PO Q12H PRN PRN Reason: Constipation Emollient Ointment (Lanolin 100% Cream 7 Gm Tube) 0 gm TOP ASDIRECTED PRN PRN Reason: Sore Nipples Last Admin: 07/30/21 15:22 Dose: 1 tube Documented by: Tranexamic Acid 1,000 mg/ (Sodium Chloride) 110 mls @ 660 mls/hr IV ONETIME PRN PRN Reason: Bleeding Witch Rebekah (Witch Rebekah Medicated Pads 40/Jar) 1 pad TOP ASDIRECTED PRN PRN Reason: comfort care Last Admin: 08/01/21 08:32 Dose: 1 tub Documented by: Discontinued Medications Bupivacaine HCl (Bupivacaine 0.25% 10 Ml Sdv) Confirm Administered Dose 20 ml .ROUTE .PagoFacilReInnervate ONE Stop: 07/30/21 10:09 Last Admin: 07/31/21 00:16 Dose: Not Given Documented by: Butorphanol Tartrate (Butorphanol 1 Mg/Ml Sdv) 1 mg IVPUSH Q1H PRN PRN Reason: Pain (severe 7-10) Last Admin: 07/30/21 08:23 Dose: 1 mg Documented by: Carboprost Tromethamine (Carboprost Tromethamine 250 Mcg/1 Ml Amp) 250 mcg IM ASDIRECTED PRN PRN Reason: Post Hemorrhage Ephedrine Sulfate (Ephedrine 50 Mg/Ml Sdv) 10 mg IVPUSH Q1M PRN PRN Reason: Hypotension Lactated Ringer's (Ringers, Lactated) 1,000 mls @ 150 mls/hr IV ASDIRECTED COUNT INCLUDES THE [facility] Last Admin: 07/30/21 11:09 Dose: 999 mls/hr Documented by: Oxytocin/Sodium Chloride (Oxytocin 30 Unit/500 Ml-Ns) 30 unit in 500 mls @ 999 mls/hr IV TITRATE COUNT INCLUDES THE [facility] Last Admin: 07/30/21 11:57 Dose: 999 mls/hr Documented by: Tranexamic Acid 1,000 mg/ (Sodium Chloride) 110 mls @ 660 mls/hr IV ONETIME PRN PRN Reason: Bleeding Oxytocin/Sodium Chloride (Oxytocin 30 Unit/500 Ml-Ns) 30 unit in 500 mls @ 2 mls/hr IV TITRATE COUNT INCLUDES THE [facility]; Protocol Ropivacaine (Naropin 0.2%) Confirm Administered Dose 200 mls @ as directed .ROUTE .DocbookMD ONE Stop: 07/30/21 10:09 Last Admin: 07/31/21 00:17 Dose: Not Given Documented by: Lidocaine HCl (Lidocaine 1% 50 Ml Mdv) 50 ml INJECT ONETIME PRN PRN Reason: Laceration repair Methylergonovine Maleate (Methylergonovine 0.2 Mg/1 Ml Amp) 0.2 mg IM ASDIRECTED PRN PRN Reason: Post Hemorrhage Miscellaneous Medication (Phenylephrine Hcl In 0.9% Nacl 1 Mg/10 Ml Syringe) 0.1 mg IVPUSH Q1M PRN PRN Reason: Hypotension Misoprostol (Misoprostol 200 Mcg Tab) 200 mcg PO ONETIME PRN PRN Reason: Post Hemorrhage Misoprostol (Misoprostol 25 Mcg (1/4 Of 100 Mcg) Tab) 25 mcg VAG Q6H PRN PRN Reason: Cervical Ripening Last Admin: 07/30/21 06:27 Dose: 25 mcg Documented by: Misoprostol (Misoprostol 25 Mcg (1/4 Of 100 Mcg) Tab) Confirm Administered Dose 25 mcg .ROUTE .STK-MED ONE Stop: 07/30/21 06:24 Last Admin: 07/30/21 08:05 Dose: Not Given Documented by: Nalbuphine HCl (Nalbuphine 10 Mg/1 Ml Vial) 10 mg IVPUSH Q1H PRN PRN Reason: Pain (severe 7-10) Ropivacaine (Ropivacaine 0.2% 2mg/Ml 200 Ml Bag) 400 mg EPIDUR ASDIRECTED [place] Sodium Chloride (Sodium Chloride 0.9% 10 Ml Syringe) 10 ml FLUSH ASDIRECTED PRN PRN Reason: Keep Vein Open Sodium Chloride (Sodium Chloride 0.9% 2.5 Ml Syringe) 2.5 ml FLUSH ASDIRECTED PRN PRN Reason: Keep Vein Open Sodium Chloride (Sodium Chloride 0.9% 10 Ml Sdv) 10 ml IV ASDIRECTED PRN PRN Reason: IV Use Sterile Water (Water For Irrigation,Sterile 1,000 Ml Container) 1,000 ml IRR ASDIRECTED PRN PRN Reason: delivery Last Admin: 07/30/21 11:55 Dose: 1,000 ml Documented by: Terbutaline Sulfate (Terbutaline 1 Mg/Ml Sdv) 0.25 mg SUBCUT ASDIRECTED PRN PRN Reason: Tacysystole - Infant Interaction Disposition, : bili light Interaction: Holding Infant Infant Feeding: Breastfed Infant; Nursed Well Support Person: Significant Other - Recovery Exam Fundal Tone: Firm Fundal Level: 1 Fingerbreadths Below Umbilicus Fundal Placement: Midline Lochia Amount: Scant Lochia Color: Rubra/Red Perineum Description: Intact, Minimal Bruising/Swelling Episiotomy/Laceration: Approximated Bladder Status: Voiding Urinary Elimination: Voided - Exam General: Alert, Oriented Neck: Supple Lungs: Normal Respiratory Effort GI/Abdominal Exam: Soft, Non-Tender, No Distention Extremities: Non-Tender, No Pedal Edema Skin: Warm, Dry, Intact Neurological: No New Focal Deficit Psy/Mental Status: Alert, Normal Affect, Normal Mood - Problem List & Annotations (1) Gestational hypertension SNOMED Code(s): 72865174 Code(s): O13.9 - GESTATIONAL HTN W/O SIGNIFICANT PROTEINURIA, UNSP TRIMESTER Status: Acute Current Visit: Yes (2) bradycardia during labor SNOMED Code(s): 103176824, [id number], [id number] Code(s): [id number] - Status: Acute Current Visit: Yes - Problem List Review Problem List Initiated/Reviewed/Updated: Yes - My Orders Last 24 Hours: My Active Orders 08/01/21 08:48 Ready for Discharge [RC] PER UNIT ROUTINE - Assessment Assessment:: PPD#2 after vacuum assisted vaginal delivery for bradycardia, induction for gestational hypertension. Baby on bili lights, dismiss to home today, room in if baby stays. - Plan Plan:: Dismiss to home, discharge precautions reviewed.
[2021-08-01 16:16] VITALS: BP 130/74; PULSE 72
== END 2021-08-01 19:50 | disposition home or self-care (01) | DRG 560 ==
LOC: MW.OBCHECK 16:34 → MW.OB 16:36 → MW.OBCHECK 17:50 → MW.OB 17:50 → OBSVTOIN 07-30 11:56 → MW.OB 07-30 17:33
PROVIDERS: ADMIT Obstetrics & Gynecology; ATTEND Obstetrics & Gynecology
PROC: 10D07Z6 Extraction of Products of Conception, Vacuum, Via Natural or Artificial Opening (ICD-10-PCS; principal; 2021-07-30)
PROC: 3E033VJ Introduction of Other Hormone into Peripheral Vein, Percutaneous Approach (ICD-10-PCS; 2021-07-30)
PROC: 3E0R3BZ Introduction of Anesthetic Agent into Spinal Canal, Percutaneous Approach (ICD-10-PCS; 2021-07-30)
PROC: 00HU33Z Insertion of Infusion Device into Spinal Canal, Percutaneous Approach (ICD-10-PCS; 2021-07-30)
DX: O13.4 Gestational [pregnancy-induced] hypertension without significant proteinuria, complicating childbirth (principal); Z3A.39 39 weeks gestation of pregnancy; Z37.0 Single live birth; Z20.822 Contact with and (suspected) exposure to COVID-19; O76 Abnormality in fetal heart rate and rhythm complicating labor and delivery; O69.81X0 Labor and delivery complicated by cord around neck, without compression, not applicable or unspecified
CPT/HCPCS: 01967; 36415; 51701; 59025; 59409; 80053; 82570; 82803; 84156; 84550; 85014; 85018; 85027; 86850; 86900; 86901; A9270-GY; J0595; J2590; J2795; J3490; J7120; U0002

== ENCOUNTER 2023-12-26 21:17 | Emergency (ER) | payer BC ==
[2023-12-26 22:41] LABS: BASOPHILS ABSOLUTE AUTO 0.03 K/uL (0.00-0.20); BASOPHILS PERCENT AUTO 0.3 % (0.0-1.0); EOSINOPHILS ABSOLUTE AUTO 0.17 K/uL (0.00-0.45); HEMATOCRIT 43.8 % (37.0-47.0); HEMOGLOBIN 15.7 g/dL (12.0-16.0); IMMATURE GRAN ABSOLUTE AUTO 0.03 K/uL (0.00-0.05); IMMATURE GRAN PERCENT AUTO 0.3 % (0.0-0.4); LYMPHOCYTES PERCENT AUTO 27.6 % (24.0-44.0); MEAN CORPUSCULAR HEMOGLOBIN 29.1 pg (28.0-32.0); MEAN CORPUSCULAR HGB CONC 35.8 g/dL (32.0-36.0); MEAN CORPUSCULAR VOLUME 81.1 fL (83.0-99.0); MEAN PLATELET VOLUME 9.2 fL (9.4-12.3); MONOCYTES PERCENT AUTO 5.7 % (0.0-8.0); NEUTROPHILS ABSOLUTE AUTO 5.57 K/uL (1.80-7.70); NEUTROPHILS PERCENT AUTO 64.1 % (41.0-71.0); PLATELET COUNT,PLT 260 K/uL (150-400)
[2023-12-26] MEDS: Ondansetron 4 MG/2 ML SDV IVPUSH ONE (22:42)
[2023-12-26] MEDS: Sodium Chloride 0.9% 2.5 ML Syringe FLUSH PRN (22:42)
[2023-12-26] MEDS: Sodium Chloride 0.9% 10 ML Syringe FLUSH PRN (22:42)
[2023-12-26 23:06] LABS: ALBUMIN 3.8 g/dL (3.4-5.0); BILIRUBIN TOTAL 0.5 mg/dL (0.2-1.0); CALCIUM 9.4 mg/dL (8.5-10.1); CARBON DIOXIDE,CO2 23.5 mmol/L (21.0-32.0); CREATININE 0.7 mg/dL (0.6-1.0); EST CRCL DRUG DOSING (CG) 104.24 mL/min; POTASSIUM,K 3.6 mmol/L (3.5-5.1); PROTEIN TOTAL,TP 7.6 g/dL (6.4-8.2)
[2023-12-27 00:31] LABS: APPEARANCE,URINE CLEAR; BILIRUBIN,URINE NEGATIVE (NEGATIVE); COLOR,URINE YELLOW; GLUCOSE,URINE NEGATIVE (NEGATIVE); KETONES,URINE >=80 mg/dL (NEGATIVE); LEUKOCYTE ESTERASE,URINE MODERATE (NEGATIVE); NITRITE,URINE NEGATIVE (NEGATIVE); OCCULT BLOOD,URINE TRACE-INTACT (NEGATIVE); PROTEIN,URINE NEGATIVE (NEGATIVE); UROBILINOGEN,URINE 0.2 EU/dL (<2.0)
[2023-12-27 00:46] LABS: BACTERIA,URINE MANY (NEGATIVE); EPITHELIAL CELLS,URINE MANY (NONE-FEW); WBC,URINE 25-30 (0-5/HPF)
[2023-12-27] MEDS: Cephalexin 500 MG Cap PO ONE (00:57)
[2023-12-27 01:07] VITALS: BP 105/71; PULSE 72
== END 2023-12-27 01:06 | disposition home or self-care (01) ==
LOC: MW.ED 21:17
DX: O21.9 Vomiting of pregnancy, unspecified (principal); Z3A.10 10 weeks gestation of pregnancy; Z91.048 Other nonmedicinal substance allergy status; Z88.6 Allergy status to analgesic agent
CPT/HCPCS: 36415; 76801; 80053; 81001; 83690; 84702; 85025; 96374; 99284; A9270; J2405; J3490

== ENCOUNTER 2024-06-19 15:41 | Emergency (ER) | payer BC ==
[2024-06-19] MEDS: Sodium Chloride 0.9% 1,000 ML IV ONE (16:24)
[2024-06-19] MEDS: Sodium Chloride 0.9% 2.5 ML Syringe FLUSH PRN (16:24)
[2024-06-19] MEDS: Sodium Chloride 0.9% 10 ML Syringe FLUSH PRN (16:24)
[2024-06-19 16:26] LABS: BASOPHILS ABSOLUTE AUTO 0.04 K/uL (0.00-0.20); BASOPHILS PERCENT AUTO 0.3 % (0.0-1.0); EOSINOPHILS PERCENT AUTO 1.6 % (0.0-6.0); HEMATOCRIT 32.3 % (37.0-47.0); HEMOGLOBIN 11.3 g/dL (12.0-16.0); IMMATURE GRAN ABSOLUTE AUTO 0.13 K/uL (0.00-0.05); LYMPHOCYTES ABSOLUTE AUTO 2.17 K/uL (1.00-4.80); LYMPHOCYTES PERCENT AUTO 17.1 % (24.0-44.0); MEAN CORPUSCULAR HEMOGLOBIN 26.7 pg (28.0-32.0); MEAN CORPUSCULAR VOLUME 76.4 fL (83.0-99.0); MEAN PLATELET VOLUME 9.3 fL (9.4-12.3); MONOCYTES ABSOLUTE AUTO 0.88 K/uL (0.00-0.80); NEUTROPHILS ABSOLUTE AUTO 9.24 K/uL (1.80-7.70); PLATELET COUNT,PLT 259 K/uL (150-400); RED BLOOD CELL COUNT 4.23 M/uL (4.10-5.30); WHITE BLOOD CELL COUNT,WBC 12.66 K/uL (3.9-11.3)
[2024-06-19 16:52] VITALS: BP 133/87; PULSE 105
[2024-06-19 16:58] LABS: A/G RATIO 0.7 (0.9-1.6); ALBUMIN 2.7 g/dL (3.4-5.0); BILIRUBIN TOTAL 0.3 mg/dL (0.2-1.0); CALCIUM 9.5 mg/dL (8.5-10.1); CARBON DIOXIDE,CO2 21.2 mmol/L (21.0-32.0); CREATININE 0.6 mg/dL (0.6-1.0); EST CRCL DRUG DOSING (CG) 120.54 mL/min; POTASSIUM,K 3.7 mmol/L (3.5-5.1); PROTEIN TOTAL,TP 6.6 g/dL (6.4-8.2)
[2024-06-19 17:37] LABS: BILIRUBIN,URINE NEGATIVE (NEGATIVE); COLOR,URINE YELLOW; GLUCOSE,URINE NEGATIVE (NEGATIVE); KETONES,URINE NEGATIVE (NEGATIVE); LEUKOCYTE ESTERASE,URINE LARGE (NEGATIVE); NITRITE,URINE NEGATIVE (NEGATIVE); OCCULT BLOOD,URINE TRACE-INTACT (NEGATIVE); PH,URINE 6.5 (5.0-8.0); PROTEIN,URINE NEGATIVE (NEGATIVE); UROBILINOGEN,URINE 0.2 EU/dL (<2.0)
[2024-06-19 17:39] LABS: CORONAVIRUS COVID-19 NAA NEGATIVE (NEGATIVE); INFLUENZA A NAA NEGATIVE (NEGATIVE); INFLUENZA B NAA NEGATIVE (NEGATIVE)
[2024-06-19 17:50] LABS: APPEARANCE,URINE HAZY
[2024-06-19 17:51] LABS: BACTERIA,URINE 1+ (NEGATIVE); EPITHELIAL CELLS,URINE FEW (NONE-FEW); RBC,URINE 0-1 (0-2/HPF)
== END 2024-06-19 17:30 | disposition still patient (30) ==
LOC: MW.ED 15:41
DX: O99.413 Diseases of the circulatory system complicating pregnancy, third trimester (principal); R07.9 Chest pain, unspecified; Z88.8 Allergy status to other drugs, medicaments and biological substances; Z91.048 Other nonmedicinal substance allergy status; Z79.82 Long term (current) use of aspirin; Z79.899 Other long term (current) drug therapy; Z75.8 Other problems related to medical facilities and other health care; Z3A.39 39 weeks gestation of pregnancy
CPT/HCPCS: 0240U; 36415; 80053; 81001; 84484; 85025; 87086; 93005; 96360; 99285; J3490; J7030; 93010

== ENCOUNTER 2024-07-19 11:46 | Observation (INO) | payer BC ==
[2024-07-19] MEDS ORDERED: Sodium Chloride 0.9% 2.5 ML Syringe FLUSH PRN (11:55)
[2024-07-19] MEDS ORDERED: Ondansetron 4 MG/2 ML SDV IVPUSH PRN (11:55)
[2024-07-19] MEDS ORDERED: Carboprost Tromethamine 250 MCG/1 mL Vial IM PRN (11:55)
[2024-07-19] MEDS ORDERED: Tranexamic Acid IN NACL,ISO-OS 1,000 MG in Premix Bag 1 BAG IV PRN (11:55)
[2024-07-19] MEDS ORDERED: Water For Irrigation,Sterile 1,000 ML Container IRR PRN (11:55)
[2024-07-19] MEDS ORDERED: Sodium Chloride 0.9% 20 ML SDV IV PRN (11:55)
[2024-07-19] MEDS ORDERED: Butorphanol 2 MG/ML SDV IVPUSH PRN (11:55)
[2024-07-19] MEDS ORDERED: Methylergonovine 0.2 MG/1 ML Amp IM PRN (11:55)
[2024-07-19] MEDS ORDERED: Sodium Chloride 0.9% 10 ML Syringe FLUSH PRN (11:55)
[2024-07-19] MEDS ORDERED: Misoprostol 200 MCG Tab PO PRN (11:55)
[2024-07-19] MEDS: Lactated Ringers 1,000 ML IV SCH (12:20)
[2024-07-19 12:22] LABS: HEMATOCRIT 35.3 % (37.0-47.0); HEMOGLOBIN 11.8 g/dL (12.0-16.0); MEAN CORPUSCULAR HEMOGLOBIN 24.8 pg (28.0-32.0); MEAN CORPUSCULAR HGB CONC 33.4 g/dL (32.0-36.0); MEAN CORPUSCULAR VOLUME 74.3 fL (83.0-99.0); MEAN PLATELET VOLUME 9.7 fL (9.4-12.3); PLATELET COUNT,PLT 275 K/uL (150-400); RED BLOOD CELL COUNT 4.75 M/uL (4.10-5.30); WHITE BLOOD CELL COUNT,WBC 12.35 K/uL (3.9-11.3)
[2024-07-19] MEDS ORDERED: Bupivacaine 0.25% 10 ML SDV ONE (12:31)
[2024-07-19] MEDS ORDERED: fentaNYL 100 MCG/2 ML SDV ONE (12:31)
[2024-07-19] MEDS: Oxytocin/0.9 % Sodium Chloride 30 UNIT/500 ML BAG IV SCH (12:48)
[2024-07-19] MEDS: Lidocaine 1% 50 ML MDV INJECT PRN (12:56)
[2024-07-19] MEDS ORDERED: ePHEDrine 50 MG/ML SDV IM PRN (13:17)
[2024-07-19] MEDS ORDERED: Phenylephrine HCl In 0.9% NaCl 1 MG/10 ML Syringe IVPUSH PRN (13:17)
[2024-07-19] MEDS ORDERED: ePHEDrine 50 MG/ML SDV IVPUSH PRN (13:17)
[2024-07-19] MEDS ORDERED: dexmedeTOMIDine HCl 200 MCG/2 ML SDV EPIDUR SCH (13:30)
[2024-07-19] MEDS ORDERED: Ropivacaine HCl/PF 400 MG in Premix Bag 1 BAG EPIDUR SCH (13:30)
[2024-07-19] MEDS ORDERED: Famotidine 20 MG Tab PO PRN (14:08)
[2024-07-19] MEDS ORDERED: Aluminum Hydroxide/Magnesium Hydroxide/Simethicone Susp 30 ML Cup PO PRN (14:08)
[2024-07-19] MEDS ORDERED: Ibuprofen 800 MG Tab PO PRN (14:08)
[2024-07-19] MEDS ORDERED: Lanolin 100% Cream 7 GM Tube TOP PRN (14:08)
[2024-07-19] MEDS ORDERED: Simethicone 80 MG Tab.Chew PO PRN (14:08)
[2024-07-19 14:25] LABS: PH,UMBILICAL ARTERIAL 7.178 (7.18-7.38); PH,UMBILICAL VENOUS 7.252 (7.25-7.45)
[2024-07-19] MEDS: Witch Hazel Medicated Pads 40/Jar TOP PRN (14:49)
[2024-07-19] MEDS: Benzocaine/Menthol 20%-0.5% Spray 78 GM Cannister TOP PRN (14:49)
[2024-07-19] MEDS: Docusate Sodium 100 MG Cap PO PRN (14:50)
[2024-07-19] MEDS: Acetaminophen 500 MG Tab PO PRN (14:50)
[2024-07-19 16:20] VITALS: BP 114/73; PULSE 88
== END 2024-07-19 19:59 | disposition home or self-care (01) ==
LOC: MW.OB 11:46 → MW.OBCHECK 11:46 → MW.OB 11:55
PROVIDERS: ADMIT Obstetrics & Gynecology; ATTEND Obstetrics & Gynecology
DX: O76 Abnormality in fetal heart rate and rhythm complicating labor and delivery (principal); Z37.0 Single live birth
CPT/HCPCS: 36415; 59025; 59409; 82803; 85027; 86592; 86850; 86900; 86901; A9270; J2001; J2590; J3010; J3490; J7120; 00731